=== PATIENT | female | born 2000 | race Caucasian/White ===

== ENCOUNTER → 2021-10-13 10:08 | Outpatient (BNVA) | payer MEDICAID, SELFPAY | PROVIDERS: Visit Provider Nurse Practitioner Family | DX: F95.9 Tic disorder, unspecified (principal); F39 Unspecified mood [affective] disorder; F43.10 Post-traumatic stress disorder, unspecified; Z79.899 Other long term (current) drug therapy | CPT/HCPCS: 99212 ==

== ENCOUNTER → 2022-01-26 09:19 | Outpatient (BNVA) | payer MEDICAID, SELFPAY | PROVIDERS: Visit Provider Nurse Practitioner Family | DX: F95.9 Tic disorder, unspecified (principal); F39 Unspecified mood [affective] disorder; F43.10 Post-traumatic stress disorder, unspecified | CPT/HCPCS: 99212 ==

== ENCOUNTER → 2022-05-27 09:23 | Outpatient (BNVA) | payer MEDICAID, SELFPAY | PROVIDERS: Visit Provider Nurse Practitioner Family | DX: F95.9 Tic disorder, unspecified (principal); F39 Unspecified mood [affective] disorder; F43.10 Post-traumatic stress disorder, unspecified; G43.109 Migraine with aura, not intractable, without status migrainosus; Z79.899 Other long term (current) drug therapy | CPT/HCPCS: 99212 ==

== ENCOUNTER → 2022-08-27 11:01 | Outpatient (BNVA) | payer MEDICAID, SELFPAY | PROVIDERS: Visit Provider Nurse Practitioner Family | DX: F95.9 Tic disorder, unspecified (principal); F43.10 Post-traumatic stress disorder, unspecified; F39 Unspecified mood [affective] disorder; G43.109 Migraine with aura, not intractable, without status migrainosus; Z79.899 Other long term (current) drug therapy | CPT/HCPCS: 99212 ==

== ENCOUNTER 2023-01-01 11:01 | Outpatient (AMB) | payer MEDICAID, SELFPAY ==
--- NOTE | 2023-01-01 11:02 | A.OFFVIS_ITS ---
Intake Vital Signs 01/01/23 11:03 Height 5 ft 1 in Weight 119 lb BMI 22.5 Pulse 94 Pulse Source Pulse Oximeter Pulse Oximetry (%) 99 Oxygen Delivery Method Room Air Intake Visit Reasons: 4mo follow up - Confirmed Intake Note: Patient presents for 4 month follow up. Patient states My hair pulling has gotten better.no changes made it juts happened. Allergies No Known Allergies Allergy (Verified 01/01/23 11:06) Medication List - Last Reconciled 01/01/23 by SALINAS Orellana clonidine HCl 0.2 mg PO BEDTIME 90 days fluoxetine 60 mg PO DAILY 30 days gabapentin 100 - 300 mg (1 - 3 x 100 mg) PO BEDTIME 30 days magnesium oxide 400 mg PO BEDTIME 30 days riboflavin (vitamin B2) 400 mg (4 x 100 mg) PO DAILY 90 days sumatriptan succinate 50 - 100 mg orally at onset of headache, may repeat in 2 h rs PRN; max 2 tabs per day or 4 tabs/week (may take with Ibuprofen) 30 days HPI HPI Comments History of Present Illness Details 22-yr-old female presents for f/u visit. Pt denies any significant interval medical changes. Initially reports her mood is stable, however then notes that she has has increased bouts of hearing pulling. She can often feel that she is not a goo person. She has been taking walks with her mom. She is able to go to the store with her grandmother/mother if the store is not busy. She is still meeting w/ her therapist regularly. She is having having about 1 headache a week. She is using the Sumatriptan as needed, which are effective. [facility] Family History Father Tourette's Brother Diabetes mellitus Social History Alcohol intake: never Patient Tobacco Use Status: Never used Tobacco Review of Systems Const All systems reviewed & are unremarkable except as noted in HPI and below Physical Exam Vital Signs: Last Vital Signs Pulse 94 01/01/23 11:03 Pulse Ox 99 01/01/23 11:03 Oxygen Delivery Method Room Air 01/01/23 11:03 BMI result Body Mass Index 22.5 Const General: cooperative and no acute distress Orientation/consciousness: patient oriented x3 HEENT Head: Yes normocephalic Resp Effort & Inspection: normal respiratory effort and able to speak in complete sentences Neuro General: patient oriented x3, gait normal and CN's II-XI intact bilaterally Cognition (Neuro): normal cognition Motor exam (neuro): 5/5 motor strength present throughout Psych Appearance: grossly normal Mental Status: mental status grossly normal Speech and movement: Normal speech and movement present Affect: normal affect Attitude: cooperative Thought process: Normal thought process present Thought content: Normal thought content present Insight: Good insight present (Psych) Judgement: Good judgement present (Psych) Assessment & Plan Assessment & Plan (1) Tic disorder: Comment: Vocal and Motor tics. ? exacerbated by recent trauma which coincided with COVID- 19 pandemic in Spring 2019. Code(s): F95.9 - Tic disorder, unspecified (2) Mood disorder: Comment: depression, anxiety, fear, PTSD components. Code(s): F39 - Unspecified mood [affective] disorder (3) PTSD (post-traumatic stress disorder): Comment: w/ strong apprehension of being close to men Code(s): F43.10 - Post-traumatic stress disorder, unspecified (4) Migraine with aura: Code(s): G43.109 - Migraine with aura, not intractable, without status migrainosus Plan For tics/PTSD/mood disorder: Increase fluoxetine from 30mg bid to 60mg qam and 20mg qpm (pt wary to take a larger dose capsule). Continue Clonidine 0.2mg qhs. Continue psychotherapy. Continue to use strategies to manage tics/anxiety- such as using handheld tangible devices or increasing activities such as coloring. ? For migraine with aura and neck pain: For prevention: Continue Riboflavin May use Magnesium prn. Continue Gabapentin 200mg qhs For acute tx: Continue Sumatriptan prn. ? For menstrual migraine: Starting 2 days before menses, may take Sumatriptan 50-100mg and Naproxen 440mg q 12 hrs (max 5 days). Medications: New fluoxetine 60 mg PO DAILY 30 days 30 tabs 3RF Changed From fluoxetine administer in the morning and at noon/midday 20 mg PO BID 60 caps 0RF 30 days To fluoxetine 20 mg PO QPM 30 caps 6RF 30 days Discontinued fluoxetine take w/ 20mg tab = 30mg daily Discontinued Reason: Doctor's Order 10 mg PO DAILY 30 days 30 tabs 3RF fluoxetine take w/ 10mg tab= 30mg daily Discontinued Reason: Doctor's Order 20 mg PO DAILY 30 days 30 tabs 6RF Coding Level of Care Code Est Pt Level 4 (75748) Diagnoses Tic disorder F95.9 Mood disorder F39 PTSD (post-traumatic stress disorder) F43.10 Migraine with aura G43.109
[2023-01-01 11:03] VITALS: PULSE 94; O2SAT 99; BMI 22.5
== END 2023-01-01 11:54 | disposition home or self-care (01) ==
PROVIDERS: Visit Provider Nurse Practitioner Family
DX: F95.9 Tic disorder, unspecified (principal); F39 Unspecified mood [affective] disorder; F43.10 Post-traumatic stress disorder, unspecified; G43.109 Migraine with aura, not intractable, without status migrainosus
CPT/HCPCS: 99214

== ENCOUNTER → 2023-01-01 11:01 | Outpatient (BNVA) | payer MEDICAID, SELFPAY | PROVIDERS: Visit Provider Nurse Practitioner Family | DX: F95.9 Tic disorder, unspecified (principal); F39 Unspecified mood [affective] disorder; F43.10 Post-traumatic stress disorder, unspecified; G43.109 Migraine with aura, not intractable, without status migrainosus | CPT/HCPCS: 99212 ==

== ENCOUNTER 2023-04-15 11:23 | Outpatient (AMB) | payer MEDICAID, SELFPAY ==
[2023-04-15 11:42] VITALS: BP 98/70; PULSE 86; O2SAT 99; BMI 22.1
--- NOTE | 2023-04-15 11:42 | A.OFFVIS_ITS ---
Intake Vital Signs 04/15/23 11:42 Height 5 ft 1 in Weight 117 lb BMI 22.1 BP 98/70 Blood Pressure Location Rt brachial Position Sitting Pulse 86 Pulse Source Pulse Oximeter Pulse Oximetry (%) 99 Oxygen Delivery Method Room Air Intake Visit Reasons: 4mo follow up-Confirmed Intake Note: Patient presents for 4 month follow up. everything's going great Allergies No Known Allergies Allergy (Verified 04/15/23 11:47) Medication List - Last Reconciled 04/15/23 by SALINAS Orellana clonidine HCl 0.2 mg PO BEDTIME 90 days fluoxetine 3 tabs qam and 1 tab qhs orally; 30 days gabapentin 100 - 300 mg (1 - 3 x 100 mg) PO BEDTIME 30 days magnesium oxide 400 mg PO BEDTIME 30 days riboflavin (vitamin B2) 400 mg (4 x 100 mg) PO DAILY 90 days sumatriptan succinate 50 - 100 mg orally at onset of headache, may repeat in 2 hrs PRN; max 2 tabs per day or 4 tabs/week (may take with Ibuprofen) 30 days HPI HPI Comments History of Present Illness Details 22-yr-old female presents for f/u visit, accompanied by her mom. Pt denies any significant interval medical history changes. She feels that the recent med changes have been helpful. However, once a week, she can feel more depressed, miserable in the morning. She finds that playing her switch for an hour help. Tics are well-controlled. Less nighttime tics. She has been having some postural tremor. Migraines are well controlled on her current regimen. Using sumatriptan once or twice a week with good effect. She is still seeing her therapist. [facility] Family History Father Tourette's Brother Diabetes mellitus Social History Alcohol intake: never Patient Tobacco Use Status: Never used Tobacco Review of Systems Const All systems reviewed & are unremarkable except as noted in HPI and below Physical Exam Vital Signs: Last Vital Signs Pulse 86 04/15/23 11:42 BP 98/70 04/15/23 11:42 Pulse Ox 99 04/15/23 11:42 Oxygen Delivery Method Room Air 04/15/23 11:42 BMI result Body Mass Index 22.1 Const General: cooperative and no acute distress Resp Effort & Inspection: normal respiratory effort and able to speak in complete sentences Neuro Other: Alert and oriented x3 Overall pleasant affect Mild verbal tics, some swearing and some offensive statements. Mild hand movements, patient is using her fidgeting devices with good 1st effect during the visit. [place] of head has evidence of repetitive hair tugging pulling. Assessment & Plan Assessment & Plan (1) Tic disorder: Comment: Vocal and Motor tics. ? exacerbated by recent trauma which coincided with COVID- 19 pandemic in Spring 2019. Code(s): F95.9 - Tic disorder, unspecified (2) Mood disorder: Comment: depression, anxiety, fear, PTSD components. Code(s): F39 - Unspecified mood [affective] disorder (3) Tremor: Code(s): R25.1 - Tremor, unspecified (4) Family history of diabetes mellitus type I: Code(s): Z83.3 - Family history of diabetes mellitus Plan The patient requests assistance with finding of adult PCP. We will reach out to [facility] [place] office to see if their female PCPs are accepting new patients. Will check baseline labs for tremor and depression. For tics/PTSD/mood disorder: Continue fluoxetine 60mg qam and 20mg qpm (pt wary to take a larger dose capsule). Continue Clonidine 0.2mg qhs. Continue psychotherapy. Continue to use strategies to manage tics/anxiety- such as using handheld tangible devices or increasing activities such as coloring. ? For migraine with aura and neck pain: For prevention: Continue Riboflavin May use Magnesium prn. Continue Gabapentin 200mg qhs For acute tx: Continue Sumatriptan prn. ? For menstrual migraine: Starting 2 days before menses, may take Sumatriptan 50-100mg and Naproxen 440mg q 12 hrs (max 5 days). Follow-up in 3-4 months or sooner as needed. This note is constructed using voice recognition software. While every effort has been made to ensure accuracy, energy trader errors may have been included. Orders: Orders Complete Blood Count Auto Diff 04/15/23 F39 - Unspecified mood [affective] disorder, F95.9 - Tic disorder, unspecified, G43.109 - Migraine with aura, not intractable, without status migrainosus, R25.1 - Tremor, unspecified, Z83.3 - Family history of diabetes mellitus Vitamin B12 and Folate 04/15/23 F39 - Unspecified mood [affective] disorder, F95.9 - Tic disorder, unspecified, G43.109 - Migraine with aura, not intractable, without status migrainosus, R25.1 - Tremor, unspecified, Z83.3 - Family history of diabetes mellitus Hemoglobin A1c 04/15/23 F39 - Unspecified mood [affective] disorder, G43.109 - Migraine with aura, not intractable, without status migrainosus, R25.1 - Tremor, unspecified, Z83.3 - Family history of diabetes mellitus Comprehensive Met. Panel 04/15/23 F39 - Unspecified mood [affective] disorder, F95.9 - Tic disorder, unspecified, G43.109 - Migraine with aura, not intractable, without status migrainosus, R25.1 - Tremor, unspecified, Z83.3 - Family history of diabetes mellitus Erythrocyte Sedimentation Rate 04/15/23 F39 - Unspecified mood [affective] disorder, F95.9 - Tic disorder, unspecified, G43.109 - Migraine with aura, not intractable, without status migrainosus, R25.1 - Tremor, unspecified, Z83.3 - Family history of diabetes mellitus RODRIGUEZ Reflex Titer and Pattern 04/15/23 F39 - Unspecified mood [affective] disorder, F95.9 - Tic disorder, unspecified, G43.109 - Migraine with aura, not intractable, without status migrainosus, R25.1 - Tremor, unspecified, Z83.3 - Family history of diabetes mellitus Rheumatoid Factor 04/15/23 F39 - Unspecified mood [affective] disorder, F95.9 - Tic disorder, unspecified, G43.109 - Migraine with aura, not intractable, without status migrainosus, R25.1 - Tremor, unspecified, Z83.3 - Family history of diabetes mellitus TSH reflex Free T4 04/15/23 F39 - Unspecified mood [affective] disorder, F95.9 - Tic disorder, unspecified, G43.109 - Migraine with aura, not intractable, without status migrainosus, R25.1 - Tremor, unspecified, Z83.3 - Family history of diabetes mellitus Folate 04/15/23 F39 - Unspecified mood [affective] disorder, F95.9 - Tic disorder, unspecified, G43.109 - Migraine with aura, not intractable, without status migrainosus, R25.1 - Tremor, unspecified, Z83.3 - Family history of diabetes mellitus Medications: Changed From magnesium oxide may hold for loose stools 400 mg PO BEDTIME 30 days 30 tabs 6RF To magnesium oxide may hold for loose stools 400 mg PO BEDTIME 90 days 90 tabs 3RF Refilled riboflavin (vitamin B2) in am 400 mg (4 x 100 mg) PO DAILY 90 days 360 tabs 3RF sumatriptan succinate (0.5 - 1 x 100 mg) 50 - 100 mg orally at onset of headache, may repeat in 2 hrs PRN; max 2 tabs per day or 4 tabs/week (may take with Ibuprofen) 30 days 12 tabs 6RF migraine headache gabapentin 100 - 300 mg (1 - 3 x 100 mg) PO BEDTIME 30 days 90 caps 6RF fluoxetine 3 tabs qam and 1 tab qhs orally; 30 days 120 caps 6RF F39 - Unspecified mood [affective] disorder, F43.10 - Post-traumatic stress disorder, unspecified, F95.9 - Tic disorder, unspecified clonidine HCl 0.2 mg PO BEDTIME 90 days 90 tabs 1RF Coding Level of Care Code Est Pt Level 4 (91842) Diagnoses Tic disorder F95.9 Mood disorder F39 Tremor R25.1 Family history of diabetes mellitus type I Z83.3
== END 2023-04-15 12:35 | disposition home or self-care (01) ==
PROVIDERS: Visit Provider Nurse Practitioner Family
DX: F95.9 Tic disorder, unspecified (principal); F39 Unspecified mood [affective] disorder; Z83.3 Family history of diabetes mellitus
CPT/HCPCS: 99214

== ENCOUNTER → 2023-04-15 11:23 | Outpatient (BNVA) | payer MEDICAID, SELFPAY | PROVIDERS: Visit Provider Nurse Practitioner Family | DX: F95.9 Tic disorder, unspecified (principal); F39 Unspecified mood [affective] disorder; R25.1 Tremor, unspecified; Z83.3 Family history of diabetes mellitus | CPT/HCPCS: 99212 ==

== ENCOUNTER 2023-04-15 13:00 | Outpatient (REF) | payer MEDICAID, SELFPAY ==
[2023-04-15 16:21] LABS: MANUAL DIFF FLAG NO
[2023-04-15 16:40] LABS: Basophils Percent Auto 0.3 % (0-2); Eosinophils Absolute Auto 0.1 X10*3/uL (0.0-0.4); Eosinophils Percent Auto 1.7 % (0-4); Hematocrit 41.9 % (37.0-47.0); Hemoglobin 13.8 g/dl (12.0-16.0); Imm Gran Abs Auto 0.03 X10*3/uL (0.00-0.03); Imm Gran Pct Auto 0.4 % (0.0-0.4); Lymphocytes Absolute Auto 2.6 X10*3/uL (1.2-4.9); Lymphocytes Percent Auto 33.6 % (20-40); Mean Corpuscular HGB Conc 32.9 g/dl (31.0-35.0); Mean Corpuscular Hemoglobin 31.1 pg (27.0-33.0); Mean Corpuscular Volume 94.4 fL (80.0-98.0); Monocytes Absolute Auto 0.7 X10*3/uL (0.1-1.2); Monocytes Percent Auto 8.6 % (2-11); Neutrophils Absolute Auto 4.3 x10*3/uL (2.0-8.3); Neutrophils Percent Auto 55.4 % (45-73); Platelet Count 235 X10*3/uL (160-400); Red Blood Count 4.44 X10*6/uL (4.20-5.50); Red Cell Distribution Width 12.6 % (11.0-16.0); White Blood Count 7.8 X10*3/uL (4.8-10.8)
[2023-04-15 16:46] LABS: Estimated Average Glucose 94 mg/dL; Hemoglobin A1c % 4.9 % (<6.0)
[2023-04-15 16:47] LABS: Rheumatoid Factor < 13.0 IU/mL (<15.0)
[2023-04-15 16:52] LABS: Alanine Aminotransferase 20 U/L (0-31); Albumin Level 4.8 g/dL (3.5-5.0); Alkaline Phosphatase 76 U/L (39-117); Anion Gap 18 (12-20); Aspartate Amino Transferase 22 U/L (5-31); Bilirubin Total 0.5 mg/dL (0.0-1.0); Blood Urea Nitrogen 13 mg/dL (9-16); Calcium 10.4 mg/dL (8.4-10.2); Carbon Dioxide 24 mmol/L (22-29); Chloride 102 mmol/L (96-108); Estimated Glomerular Filt Rate > 60; Glucose Random 86 mg/dL (60-115); Sodium 140 mmol/L (135-145); Total Protein 8.2 g/dL (6.5-8.0)
[2023-04-15 17:08] LABS: TSH reflex Free T4 1.89 uIU/mL (0.32-4.0)
[2023-04-15 17:17] LABS: Folate 7.3 ng/mL (> or = 4.0); Vitamin B12 625 pg/mL (200-900)
[2023-04-15 17:25] LABS: Erythrocyte Sedimentation Rate 12 MM/HR (0-20)
[2023-04-22 13:53] LABS: Anti Nuclear Antibody Screen POSITIVE (NEGATIVE)
== END 2023-04-15 13:01 | disposition home or self-care (01) ==
LOC: HO.HMGCLDS 13:00
PROVIDERS: Visit Provider Nurse Practitioner Family
DX: G43.109 Migraine with aura, not intractable, without status migrainosus (principal); R25.1 Tremor, unspecified; F39 Unspecified mood [affective] disorder; Z83.3 Family history of diabetes mellitus
CPT/HCPCS: 36415; 80053; 82607; 82746; 83036; 84443; 85025; 85652; 86038; 86039; 86431; 99212

== ENCOUNTER 2023-06-11 14:46 | Outpatient (AMB) | payer MEDICAID, SELFPAY ==
[2023-06-11 14:52] VITALS: BP 100/70; PULSE 99; TEMP 36.1; O2SAT 98; BMI 21.7
--- NOTE | 2023-06-11 14:52 | MHC.OFFVIS ---
Intake Vital Signs 06/11/23 14:52 Height 5 ft 1 in Weight 115 lb BMI 21.7 BP 100/70 Blood Pressure Location Rt brachial Position Sitting Pulse 99 Pulse Source Pulse Oximeter Temp 97 F Temp Source Skin Pulse Oximetry (%) 98 Oxygen Delivery Method Room Air Intake Visit Reasons: abnormal immunological findings in serum/LVM Intake Note: New patient, internally referred, presents to office today for abnormal labs. Donor Specialist Required: No Accompanied by: Grand Parent Allergies No Known Allergies Allergy (Verified 06/11/23 14:55) HPI HPI Comments History of Present Illness Details Ms. Beasley 22-year-old female prevents for evaluation of positive RODRIGUEZ. She is accompanied by her grandmother. She was referred by neurologist. She has been seeing the neurologist for what she describes as tremors to her hands. The patient has no complaints with regards signs and symptoms for connective tissue disease. She denies dry eyes dry mouth, rashes, chronic fatigue and fevers. She she says she gets fine bumps when she is in the sun which sounds more like a heat rash. She does not have GI or urinary concerns. She denies red, warm, swollen joints, Raynaud's. Grandma observed to have Raynaud's during visit Neurology visit 04/15/2023: 22-yr-old female presents for f/u visit, accompanied by her mom. Pt denies any significant interval medical history changes. She feels that the recent med changes have been helpful. However, once a week, she can feel more depressed, miserable in the morning. She finds that playing her switch for an hour help. Tics are well-controlled. Less nighttime tics. She has been having some postural tremor. Migraines are well controlled on her current regimen. Using sumatriptan once or twice a week with good effect. She is still seeing her therapist. [facility] Family History (Updated 06/11/23 @ 14:57 by SABINA Penny) Father Tourette's Brother Diabetes mellitus Family/Other Arthritis Social History Alcohol intake: never Patient Tobacco Use Status: Never used Tobacco Review of Systems Const All systems reviewed & are unremarkable except as noted in HPI and below Physical Exam Vital Signs: Last Vital Signs Temp 97 F 06/11/23 14:52 Pulse 99 06/11/23 14:52 BP 100/70 06/11/23 14:52 Pulse Ox 98 06/11/23 14:52 Oxygen Delivery Method Room Air 06/11/23 14:52 BMI result Body Mass Index 21.7 APPEARANCE: Patient in no acute distress EYES no redness, normal EARS:? External ear normal. NOSE/SINUS:? Airflow through both nares, no nasal discharge, no bleeding THROAT:? Oral mucosa moist, no ulcerations NECK:? No thyromegaly or masses, no adenopathy, trachea midline. HEART:? Regular rhythm, S1-S2 heard, no murmurs, rubs or gallops. LUNG:? Clear to percussion and auscultation EXTREMITIES:? No edema, no calf tenderness, normal peripheral pulses. NEURO:? Oriented and alert x3.? No focal weakness.? Reflexes symmetric.? Gait normal. SKIN:? There are no skin lesions evident. No objective signs of Raynaud's phenomenon. JOINT EXAM: Cervical Spine:.? Full range of motion without pain; no tenderness. Thoracic Spine:.? No scoliosis.? No tenderness on palpation. Lumbar Spine:.? Alignment normal.? Full range of motion without pain, no tenderness. Chest Wall:.? No tenderness, swelling, increased warmth or erythema. Hands:.? Normal pain-free range of motion without tenderness, swelling, increased warmth or erythema. 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 Wrists:.? Normal pain-free range of motion without tenderness, swelling, increased warmth or erythema. Elbows:. Normal pain-free range of motion without tenderness, swelling, increased warmth or erythema. Shoulders:.?? Full range of motion without pain. No tenderness, weakness, swelling, increased warmth or erythema. Hips:.? Full range of motion without pain. Hip bursa:.? No tenderness. Knees:.?? Normal pain-free range of motion without tenderness, swelling, increased warmth or erythema.? There is no effusion or crepitation Ankles:.? Normal pain-free range of motion without tenderness, swelling, increased warmth or erythema. Feet:.? Normal pain-free range of motion without tenderness, swelling, increased warmth or erythema. Tender points:? No tenderness to digital palpation at the occiput, trapezius, second rib, lateral epicondyle, knees, greater trochanter and gluteal area bilaterally. ? Results Reviewed Results Reviewed: Laboratory Tests 04/15/23 13:05 WBC 7.8 RBC 4.44 Hgb 13.8 Hct 41.9 ESR 12 Calcium 10.4 H AST 22 ALT 20 Total Protein 8.2 H TSH 1.89 Rheumatoid Factor < 13.0 RODRIGUEZ Titer 1:640 H RODRIGUEZ Titer 2 1:160 H RODRIGUEZ Titer 3 TNP RODRIGUEZ Pattern A RODRIGUEZ Pattern 2 A Assessment & Plan Assessment & Plan (1) Positive RODRIGUEZ (antinuclear antibody): Code(s): R76.8 - Other specified abnormal immunological findings in serum (2) Tremor: Code(s): R25.1 - Tremor, unspecified Plan Patient is here for positive RODRIGUEZ 1:640 evaluation. After careful initial review of history, available diagnostics, and physical examination, I do not find an concerns at this time for connective tissue disease/inflammatory process. I discussed at length with patient and her grandmother what it means to have a positive RODRIGUEZ, and a small percentage of the population can have a positive RODRIGUEZ without any related autoimmune concerns. Nonetheless, I will obtain additional labs to evaluate further. She did have a mild elevation in her calcium so I will repeat the CMP/calcium. I see no findings for sarcoid on PE and in her history but given that tremors can happen in the context of neurosarcoidosis, I will do her Neil levels and vitamin-D, if elevated calcium persists. I discussed with patient and her grandmother possible symptoms for connective tissue disease and that they should call the office should Gale develop any of the symptoms. I spent 30 minutes reviewing history, evaluating patient, and documenting Follow-up for 4 weeks to discuss lab results Orders: Orders Erythrocyte Sedimentation Rate 06/11/23 R76.8 - Other specified abnormal immunological findings in serum, R25.1 - Tremor, unspecified Anti-Centromere B Antibodies 06/11/23 R76.8 - Other specified abnormal immunological findings in serum, R25.1 - Tremor, unspecified Complement C3 06/11/23 R76.8 - Other specified abnormal immunological findings in serum, R25.1 - Tremor, unspecified Complement C4 06/11/23 R76.8 - Other specified abnormal immunological findings in serum, R25.1 - Tremor, unspecified Complete Blood Count Auto Diff 06/11/23 R76.8 - Other specified abnormal immunological findings in serum, R25.1 - Tremor, unspecified Immunofixation Pnl, Serum 06/11/23 R76.8 - Other specified abnormal immunological findings in serum, R25.1 - Tremor, unspecified Immunoglobulins,IgG IgA IgM 06/11/23 R76.8 - Other specified abnormal immunological findings in serum, R25.1 - Tremor, unspecified Sjogren's Antibodies 06/11/23 R76.8 - Other specified abnormal immunological findings in serum, R25.1 - Tremor, unspecified Lupus Anticoagulant Panel 06/11/23 R76.8 - Other specified abnormal immunological findings in serum, R25.1 - Tremor, unspecified Mitochondrial Antibody 06/11/23 R76.8 - Other specified abnormal immunological findings in serum, R25.1 - Tremor, unspecified Thyroid Peroxidase Antibodies 06/11/23 R76.8 - Other specified abnormal immunological findings in serum, R25.1 - Tremor, unspecified Thyroglobulin Antibodies 06/11/23 R76.8 - Other specified abnormal immunological findings in serum, R25.1 - Tremor, unspecified Histone Antibody 06/11/23 R76.8 - Other specified abnormal immunological findings in serum, R25.1 - Tremor, unspecified Aldolase 06/11/23 R76.8 - Other specified abnormal immunological findings in serum, R25.1 - Tremor, unspecified Anti DNA DS Antibody 06/11/23 R76.8 - Other specified abnormal immunological findings in serum, R25.1 - Tremor, unspecified ANCA Vasculitides 06/11/23 R76.8 - Other specified abnormal immunological findings in serum, R25.1 - Tremor, unspecified Anti Extractable Nuclear Ag 06/11/23 R76.8 - Other specified abnormal immunological findings in serum, R25.1 - Tremor, unspecified Comprehensive Met. Panel 06/11/23 R76.8 - Other specified abnormal immunological findings in serum, R25.1 - Tremor, unspecified Protein Electrophoresis, Serum 06/11/23 R76.8 - Other specified abnormal immunological findings in serum, R25.1 - Tremor, unspecified UA w Microscopic 06/11/23 R76.8 - Other specified abnormal immunological findings in serum, R25.1 - Tremor, unspecified Scleroderma 70 Antibody 06/11/23 R76.8 - Other specified abnormal immunological findings in serum, R25.1 - Tremor, unspecified Protein Creatinine Ratio, Ur 06/11/23 R76.8 - Other specified abnormal immunological findings in serum, R25.1 - Tremor, unspecified Smooth Muscle Antibody 06/11/23 R76.8 - Other specified abnormal immunological findings in serum, R25.1 - Tremor, unspecified Coding Level of Care Code New Pt Level 4 (51898) Diagnoses Positive RODRIGUEZ (antinuclear antibody) R76.8 Tremor R25.1
== END 2023-06-11 15:47 | disposition home or self-care (01) ==
PROVIDERS: Visit Provider Nurse Practitioner Family
DX: R76.8 Other specified abnormal immunological findings in serum (principal); R25.1 Tremor, unspecified
CPT/HCPCS: 99204

== ENCOUNTER → 2023-06-11 14:46 | Outpatient (BNVA) | payer MEDICAID, SELFPAY | PROVIDERS: Visit Provider Nurse Practitioner Family | DX: R76.8 Other specified abnormal immunological findings in serum (principal); R25.1 Tremor, unspecified | CPT/HCPCS: 99212 ==

== ENCOUNTER 2024-01-10 09:02 | Outpatient (AMB) | payer MEDICAID, SELFPAY ==
--- NOTE | 2024-01-10 09:04 | MHC.OFFVIS ---
Vital Signs 01/10/24 09:05 Height 5 ft 1 in Weight 118 lb BMI 22.3 BP 110/72 Blood Pressure Location Rt brachial Position Sitting Intake Visit Reasons: Follow Up Intake Note: Patient presents for Allergies No Known Allergies Allergy (Verified 01/10/24 09:07) Medication List - Last Reconciled 01/10/24 by SALINAS Orellana clonidine HCl 0.2 mg PO BEDTIME 90 days fluoxetine 3 tabs qam and 1 tab qhs orally; 30 days gabapentin 100 - 300 mg (1 - 3 x 100 mg) PO BEDTIME 30 days magnesium oxide 400 mg PO BEDTIME 90 days riboflavin (vitamin B2) 400 mg (4 x 100 mg) PO DAILY 90 days sumatriptan succinate 50 - 100 mg orally at onset of headache, may repeat in 2 hrs PRN; max 2 tabs per day or 4 tabs/week (may take with Ibuprofen) 30 days HPI Comments Details: 23-yr-old female presents for f/u visit of tic d/o and migraine- she is most concerned about phonophobia s/s. Pt is accompanied by her mom. She has established care with a PCP at [place]. Her interval lab results were notable for double positive RODRIGUEZ, and she had an initial rheumatology consult. Unfortunately the provider has left the practice and has not had further f/u. She was unaware that rheumatology had wanted her to have f/u labs. 04/15/23 13:05 RODRIGUEZ Screen POSITIVE A RODRIGUEZ Titer 1:640 H RODRIGUEZ Titer 2 1:160 H RODRIGUEZ Pattern A- Nuclear, Few Nuclear Dots RODRIGUEZ Pattern 2 A- Nuclear, Large/Coarse Speckled She feels her mood is improved. She is actively working with her therapist and using coping strategies. She is trying to do more activities outside of the house. Tics are well-controlled, once in a while, she will have a strong left head pulling and sniffle tic. She is having less verbal tics. She states she is always shaky- can be at rest or w/ action. She did have a period of increased hair pulling a few months ago. She reports she is almost always photophobic and phonophobic. She has frequent episodes of pressure headache, sometimes this fades away or it becomes a full migraine. She is having one bad migraine per week. Yesterday, she went to [facility] for [facility], and states this triggered 4 different headaches. She feels the B2 and Mag are still helpful. Using sumatriptan with good effect. PFSH Family History Father Tourette's Brother Diabetes mellitus Family/Other Arthritis Social History Alcohol intake: never Patient Tobacco Use Status: Never used Tobacco Physical Exam Vital Signs: Last Vital Signs BP 110/72 01/10/24 09:05 BMI result Body Mass Index 22.3 Const General: cooperative and no acute distress Orientation/consciousness: oriented to person Resp Effort & Inspection: normal respiratory effort and able to speak in complete sentences Neuro Other: Alert and oriented x3 Pleasant affect No verbal tics today. Mild left lower facial tics. No visible hand tremors. Mild hand fidgeting- using handheld device with good effect during the visit. [place] of head has evidence of repetitive hair tugging pulling. General: oriented to person Cranial nerves: Yes CN's II-XII intact bilaterally Cognition (Neuro): normal cognition Gait exam (Neuro): Normal gait present Motor exam (neuro): 5/5 motor strength present throughout Assessment & Plan Assessment & Plan (1) Tic disorder: Comment: Vocal and Motor tics. ? exacerbated by h/o significant trauma which coincided with COVID-19 pandemic in Spring 2019. Code(s): F95.9 - Tic disorder, unspecified Category: Medical (2) Mood disorder: Comment: depression, anxiety, fear, PTSD components. Code(s): F39 - Unspecified mood [affective] disorder Category: Medical (3) Tremor: Code(s): R25.1 - Tremor, unspecified Category: Medical (4) Migraine with aura: Code(s): G43.109 - Migraine with aura, not intractable, without status migrainosus Category: Medical (5) Anxiety: Code(s): F41.9 - Anxiety disorder, unspecified Category: Medical Plan Will schedule pt for f/u rheumatology visit- scheduled for 03/02/24. Pt advised to do labs as ordered by rheum prior to visit. For tics/PTSD/mood disorder: Acknowledged pt's active engagement in working w/ her therapist and making efforts to do more activities outside of the home. Continue fluoxetine 60mg qam and 20mg qpm (pt wary to take a larger dose capsule). Continue Clonidine 0.2mg qhs. Continue psychotherapy. Continue to use strategies to manage tics/anxiety- such as using handheld tangible devices and coping strategies learned through therapy. ? For migraine with aura and neck pain: For prevention: Information shared on noise reduction devices- such as loop ear plugs, foam era plugs. Continue Riboflavin May use Magnesium prn. Continue Gabapentin 200mg qhs Start Amitriptyline 10-20mg qhs. Tx contraindications- anti-HTN/Beta-blockers d/t lightheadedness. CGRP MaBs/Botox d/t needle phobia. Future considerations: Atogepant. For acute migraine tx: Continue Sumatriptan prn. ? For menstrual migraine: Starting 2 days before menses, may take Sumatriptan 50-100mg and Naproxen 440mg q 12 hrs (max 5 days). Pt to follow-up in 6 months or sooner prn. Addendum: f/u labs were notable for elevated LFTs. Call placed to pt- confirms Tylenol use < 500mg about once a week and no alcohol intake. No new unusual symptoms. Will do f/u labs. 04/15/23 01/10/24 13:05 11:15 WBC 5.3 RBC 4.29 Hgb 13.3 Hct 39.8 MCV 92.8 Plt Count 211 ESR 18 Sodium 138 Potassium 4.3 Chloride 104 Carbon Dioxide 26 Anion Gap 12 BUN 12 Creatinine 1.14 Estimated GFR 60 Random Glucose 87 Hemoglobin A1c % 4.9 Calcium 10.2 Total Bilirubin 0.5 AST 72 H ALT 98 H Alkaline Phosphatase 88 Total Protein 7.6 Total Protein (PEP) 7.4 Albumin 4.5 Albumin (PEP) 4.4 Anti-Smooth Muscle Ab <20 Thyroglobulin Antibody <1 Thyroid Peroxidase Ab 2 Complement C3 147 Complement C4 26 Orders: Orders EBV DNA QL PCR Today R79.89 - Other specified abnormal findings of blood chemistry Comprehensive Met. Panel Today R79.89 - Other specified abnormal findings of blood chemistry Amylase Today R79.89 - Other specified abnormal findings of blood chemistry Magnesium Today F41.9 - Anxiety disorder, unspecified, R25.1 - Tremor, unspecified, R76.8 - Other specified abnormal immunological findings in serum, R79.89 - Other specified abnormal findings of blood chemistry Vitamin D 25-OH (D2 and D3) Today F41.9 - Anxiety disorder, unspecified, R25.1 - Tremor, unspecified, R76.8 - Other specified abnormal immunological findings in serum, R7.89 - Other specified abnormal findings of blood chemistry Ceruloplasmin Today F41.9 - Anxiety disorder, unspecified, R25.1 - Tremor, unspecified, R76.8 - Other specified abnormal immunological findings in serum, R7. - Other specified abnormal findings of blood chemistry RODRIGUEZ Reflex Titer and Pattern Today R76.8 - Other specified abnormal immunological findings in serum, R7. - Other specified abnormal findings of blood chemistry Complete Blood Count Auto Diff Today R7. - Other specified abnormal findings of blood chemistry Lipase Today R7. - Other specified abnormal findings of blood chemistry Lipid Panel with Reflex Today R7. - Other specified abnormal findings of blood chemistry TSH reflex Free T4 Today F41.9 - Anxiety disorder, unspecified, R25.1 - Tremor, unspecified, R76.8 - Other specified abnormal immunological findings in serum, R7. - Other specified abnormal findings of blood chemistry Ferritin Today F41.9 - Anxiety disorder, unspecified, R25.1 - Tremor, unspecified, R76.8 - Other specified abnormal immunological findings in serum, R7. - Other specified abnormal findings of blood chemistry Vitamin B12 and Folate Today F41.9 - Anxiety disorder, unspecified, R25.1 - Tremor, unspecified, R76.8 - Other specified abnormal immunological findings in serum, R7.89 - Other specified abnormal findings of blood chemistry IRON PROFILE Today F41.9 - Anxiety disorder, unspecified, R25.1 - Tremor, unspecified, R76.8 - Other specified abnormal immunological findings in serum, R7. - Other specified abnormal findings of blood chemistry Rheumatoid Factor Today R76.8 - Other specified abnormal immunological findings in serum, R7. - Other specified abnormal findings of blood chemistry Medications: New amitriptyline 10 - 20 mg (1 - 2 x 10 mg) PO BEDTIME 30 days 60 tabs 3RF Coding Level of Care Code Est Pt Level 4 (51092) Complex EM visit Add On G2211 Diagnoses Tic disorder F95.9 Mood disorder F39 Tremor R25.1 Migraine with aura G43.109 Anxiety F41.9
[2024-01-10 09:05] VITALS: BP 110/72; BMI 22.3
== END 2024-01-10 10:07 | disposition home or self-care (01) ==
PROVIDERS: Visit Provider Nurse Practitioner Family
DX: F95.9 Tic disorder, unspecified (principal); F39 Unspecified mood [affective] disorder; R25.1 Tremor, unspecified; G43.109 Migraine with aura, not intractable, without status migrainosus; F41.9 Anxiety disorder, unspecified
CPT/HCPCS: 99214

== ENCOUNTER 2024-01-10 09:02 | Outpatient (REF) | payer MEDICAID, SELFPAY ==
[2024-01-10 11:24] LABS: MANUAL DIFF FLAG NO
[2024-01-10 11:34] LABS: Basophils Percent Auto 0.4 % (0-2); Eosinophils Absolute Auto 0.1 X10*3/uL (0.0-0.4); Eosinophils Percent Auto 2.1 % (0-4); Hematocrit 39.8 % (37.0-47.0); Hemoglobin 13.3 g/dl (12.0-16.0); Imm Gran Abs Auto 0.01 X10*3/uL (0.00-0.03); Imm Gran Pct Auto 0.2 % (0.0-0.4); Lymphocytes Absolute Auto 2.1 X10*3/uL (1.2-4.9); Mean Corpuscular HGB Conc 33.4 g/dl (31.0-35.0); Mean Corpuscular Volume 92.8 fL (80.0-98.0); Mean Platelet Volume 9.8 fL (9.4-12.3); Monocytes Absolute Auto 0.4 X10*3/uL (0.1-1.2); Monocytes Percent Auto 8.1 % (2-11); Neutrophils Absolute Auto 2.6 x10*3/uL (2.0-8.3); Neutrophils Percent Auto 49.2 % (45-73); Platelet Count 211 X10*3/uL (160-400); Red Blood Count 4.29 X10*6/uL (4.20-5.50); Red Cell Distribution Width 12.7 % (11.0-16.0); White Blood Count 5.3 X10*3/uL (4.8-10.8)
[2024-01-10 11:56] LABS: Appearance Urine Clear; Color Urine Dark Yellow; Glucose Urine UA Negative (Negative); Leukocyte Esterase Urine Trace (Negative); Nitrite Urine Negative (Negative); PH 7.5 (5.0-9.0); Specific Gravity - Urine <= 1.005 (1.005-1.025); UMIC TRIGGER UA YES; Urine Blood Negative (Negative); Urine Ketones Negative (Negative); Urine Protein Negative (Neg-Trace)
[2024-01-10 12:05] LABS: Bacteria Urine Trace (None Seen); Hyaline Casts Urine 0-2 /LPF (0-2); RBC Urine 0-2 /HPF (0-2); Squamous Epithelial Cell Urine 0-2 /HPF (0-2); WBC Urine 0-5 /HPF (0-5)
[2024-01-10 12:13] LABS: Erythrocyte Sedimentation Rate 18 MM/HR (0-20)
[2024-01-10 12:19] LABS: Alanine Aminotransferase 98 U/L (0-31); Albumin Level 4.5 g/dL (3.5-5.0); Alkaline Phosphatase 88 U/L (39-117); Anion Gap 12 (12-20); Aspartate Amino Transferase 72 U/L (5-31); Bilirubin Total 0.5 mg/dL (0.0-1.0); Blood Urea Nitrogen 12 mg/dL (9-16); Calcium 10.2 mg/dL (8.4-10.2); Carbon Dioxide 26 mmol/L (22-29); Chloride 104 mmol/L (96-108); Estimated Glomerular Filt Rate 60; Glucose Random 87 mg/dL (60-115); Potassium 4.3 mmol/L (3.3-5.1); Sodium 138 mmol/L (135-145); Total Protein 7.6 g/dL (6.5-8.0)
[2024-01-10 12:49] LABS: Creatinine Urine 36.88 mg/dL; Total Protein Urine Random < 7 mg/dL (<12)
[2024-01-11 10:38] LABS: Complement C3 147 mg/dL (83-193)
[2024-01-11 11:34] LABS: Thyroglobulin Antibodies <1 IU/mL (< or = 1); Thyroid Peroxidase Antibodies 2 IU/mL (<9)
[2024-01-11 13:53] LABS: Anti DNA DS Antibody <1 IU/mL; Antibody to SS-A Antigen <1.0 NEG AI (<1.0 NEG); Antibody to SS-B Antigen <1.0 NEG AI (<1.0 NEG); Myeloperoxidase Antibody <1.0 AI; Proteinase 3 PR3 Antibodies <1.0 AI; SM/Ribonucleoprotein Ab <1.0 NEG AI (<1.0 NEG); Scleroderma 70 Antibody <1.0 NEG AI (<1.0 NEG); Smith Protein <1.0 NEG AI (<1.0 NEG)
[2024-01-12 07:59] LABS: Prot Elec - Albumin 4.4 g/dL (3.8-4.8); Prot Elec - Alpha1 0.3 g/dL (0.2-0.3); Prot Elec - Alpha2 0.9 g/dL (0.5-0.9); Prot Elec - Beta 1 0.4 g/dL (0.4-0.6); Prot Elec - Beta 2 0.3 g/dL (0.2-0.5); Prot Elec - Total Protein 7.4 g/dL (6.1-8.1)
[2024-01-13 14:29] LABS: Mitochondrial Antibodies NEGATIVE (NEGATIVE)
[2024-01-13 17:43] LABS: IgA 90 mg/dL (47-310); IgG 1111 mg/dL (600-1640); IgM 179 mg/dL (50-300)
[2024-01-13 18:23] LABS: Smooth Muscle Antibody <20 U (<20)
[2024-01-13 21:43] LABS: Anti-Centromere B Antibodies <1.0 NEG AI (<1.0 NEG)
[2024-01-13 23:03] LABS: Histone Antibody <1.0 U (<1.0)
[2024-01-15 07:23] LABS: Aldolase 6.4 U/L (<=8.1)
[2024-01-15 21:24] LABS: PTT (LAC) Screen 35 sec (<=40)
== END 2024-01-10 09:03 | disposition home or self-care (01) ==
LOC: HO.LAB 09:02
PROVIDERS: Absent Provider Nurse Practitioner Family; Visit Provider Nurse Practitioner Family
DX: G43.109 Migraine with aura, not intractable, without status migrainosus (principal); R76.8 Other specified abnormal immunological findings in serum; F95.9 Tic disorder, unspecified; F41.9 Anxiety disorder, unspecified; F39 Unspecified mood [affective] disorder; R79.89 Other specified abnormal findings of blood chemistry; Z83.3 Family history of diabetes mellitus
CPT/HCPCS: 36415; 80053; 81001; 82085; 82570; 82746; 82784; 83516; 84156; 84165; 85025; 85597; 85598; 85613; 85652; 85730; 86015; 86021; 86160; 86225; 86235; 86334; 86376; 86381; 86800; 99212

== ENCOUNTER 2024-07-03 08:54 | Outpatient (AMB) | payer OTHER, SELFPAY ==
[2024-07-03 09:00] VITALS: BP 90/70; PULSE 106; O2SAT 99; BMI 19.1
--- NOTE | 2024-07-03 09:00 | MHC.OFFVIS ---
Vital Signs 07/03/24 09:00 Height 5 ft 11 in Weight 137 lb BMI 19.1 BP 90/70 Blood Pressure Location Rt brachial Position Sitting Pulse 106 H Pulse Source Pulse Oximeter Pulse Oximetry (%) 99 Oxygen Delivery Method Room Air Intake Visit Reasons: Follow up Intake Note: Patient presents follow up for migraines. Lab work done on 01/10/24 Documentum Consultant Required: No Accompanied by: Mother Allergies No Known Allergies Allergy (Verified 07/03/24 09:08) Medication List - Last Reconciled 07/03/24 by SALINAS Orellana amitriptyline 10 - 20 mg (1 - 2 x 10 mg) PO BEDTIME 30 days cholecalciferol (vitamin D3) 25 mcg PO DAILY 30 days clonidine HCl 0.2 mg PO BEDTIME 90 days fluoxetine 3 tabs qam and 1 tab qhs orally; 30 days gabapentin 100 - 300 mg (1 - 3 x 100 mg) PO BEDTIME 30 days magnesium oxide 400 mg PO BEDTIME 90 days riboflavin (vitamin B2) 400 mg (4 x 100 mg) PO DAILY 90 days sumatriptan succinate 50 - 100 mg orally at onset of headache, may repeat in 2 hrs PRN; max 2 tabs per day or 4 tabs/week (may take with Ibuprofen) 30 days HPI Comments Details: 24-yr-old female presents for f/u visit of Tourette d/o and migraine.Pt is accompanied by her mom. Patient denies significant interval medical history changes. She notes, is that she recently blood work through her new PCP, which showed vitamin-D deficiency, elevated LFTs, elevated cholesterol levels, very mildly elevated TSH. Patient denies excessive Tylenol use or alcohol intake. Patient states she was asked to start OTC vitamin-D supplement, however she has not yet obtain this. She states that her PCP plans to follow her lab results. She has not yet had follow-up follow-up with Rheumatology regarding previous double positive RODRIGUEZ, but plans to go to their office today after this visit to make the follow-up appointment. 04/15/23 13:05 RODRIGUEZ Screen POSITIVE A RODRIGUEZ Titer 1:640 H RODRIGUEZ Titer 2 1:160 H RODRIGUEZ Pattern A- Nuclear, Few Nuclear Dots RODRIGUEZ Pattern 2 A- Nuclear, Large/Coarse Speckled She states that she has periods of increased hear tugging. And that her usual handheld devices/toys seem to be less effective. She is actively working with her therapist-has just started EMDR therapy. She continues to do activities outside of the house. Tics are overall stable, may have a strong left head pulling or sniffle tic. She is having less verbal tics. She is still prone to shakiness- can be at rest or w/ action. She has started amitriptyline, which has been beneficial. Baseline migraine headache symptoms: pressure headache, sometimes this fades away or it becomes a full migraine. Using sumatriptan with good effect- those often tries to wait until the headache is really bad before taking it. [facility] Family History Father Tourette's Brother Diabetes mellitus Family/Other Arthritis Social History Alcohol intake: never Patient Tobacco Use Status: Never used Tobacco Physical Exam Vital Signs: Last Vital Signs Pulse 106 H 07/03/24 09:00 BP 90/70 07/03/24 09:00 Pulse Ox 99 07/03/24 09:00 Oxygen Delivery Method Room Air 07/03/24 09:00 BMI result Body Mass Index 19.1 Const General: cooperative and no acute distress Orientation/consciousness: oriented to person Resp Effort & Inspection: normal respiratory effort and able to speak in complete sentences Neuro Other: Alert and oriented x3 Pleasant affect No verbal tics today. Mild left lower facial tics. No visible hand tremors. Mild hand fidgeting- using handheld device with good effect during the visit. [place] of head has evidence of repetitive hair tugging pulling. General: oriented to person Cranial nerves: Yes CN's II-XII intact bilaterally Cognition (Neuro): normal cognition Gait exam (Neuro): Normal gait present Motor exam (neuro): 5/5 motor strength present throughout Results Reviewed Results Reviewed: Previous labs: 04/15/23 01/10/24 13:05 11:15 WBC 5.3 RBC 4.29 Hgb 13.3 Hct 39.8 MCV 92.8 Plt Count 211 ESR 18 Sodium 138 Potassium 4.3 Chloride 104 Carbon Dioxide 26 Anion Gap 12 BUN 12 Creatinine 1.14 Estimated GFR 60 Random Glucose 87 Hemoglobin A1c % 4.9 Calcium 10.2 Total Bilirubin 0.5 AST 72 H ALT 98 H Alkaline Phosphatase 88 Total Protein 7.6 Total Protein (PEP) 7.4 Albumin 4.5 Albumin (PEP) 4.4 Anti-Smooth Muscle Ab <20 Thyroglobulin Antibody <1 Thyroid Peroxidase Ab 2 Complement C3 147 Complement C4 26 Assessment & Plan Assessment & Plan (1) Tic disorder: Comment: Vocal and Motor tics. ? exacerbated by h/o significant trauma which coincided with COVID-19 pandemic in Spring 2019. Code(s): F95.9 - Tic disorder, unspecified Category: Medical (2) Mood disorder: Comment: depression, anxiety, fear, PTSD components. Code(s): F39 - Unspecified mood [affective] disorder Category: Medical (3) Tremor: Code(s): R25.1 - Tremor, unspecified Category: Medical (4) Migraine with aura: Code(s): G43.109 - Migraine with aura, not intractable, without status migrainosus Category: Medical (5) Anxiety: Code(s): F41.9 - Anxiety disorder, unspecified Category: Medical Plan Patient to request rheumatology follow-up appointment- we will go to their office down the [address] from us to make that appointment today. For vitamin-D deficiency: Start vitamin-D 25 mcg p.o. daily For tics/PTSD/mood disorder: Acknowledged pt's active engagement in working w/ her therapist and starting EMDR therapy. Continue fluoxetine 60mg qam and 20mg qpm (pt wary to take a larger dose capsule). Continue Clonidine 0.2mg qhs. Continue psychotherapy. Continue to use strategies to manage tics/anxiety- such as using handheld tangible devices and coping strategies learned through therapy. ? For migraine with aura and neck pain: For prevention: Information previously shared on noise reduction devices- such as loop ear plugs, foam era plugs. Continue Riboflavin May use Magnesium prn. Continue Gabapentin 200mg qhs Continue Amitriptyline 10-20mg qhs. Discussed alternatives to amitriptyline, such as anti-CGRP MaB tx's as these are not metabolized through the kidney or liver, however patient is very wary to take a monthly injectable medication. Tx contraindications- anti-HTN/Beta-blockers d/t lightheadedness. CGRP MaBs/Botox d/t needle phobia. Future considerations: Atogepant or Vyepti. For acute migraine tx: Advised that triptans will work best if taken at the 1st sign of a headache. Continue Sumatriptan 100mg tab, 1/2 - 1 tab (50-100mg) at onset of headache, may repeat in 2 hours. Max of 2 tabs (200mg) per 24 hours. May take sumatriptan with OTC Tylenol 650-1,000mg every 4-6 hours, Ibuprofen (liquid gels) 600mg every 6 hours, or Naproxen (liquid gels) 440mg q 12 hrs prn. For menstrual migraine: Starting 2 days before menses, may take Sumatriptan 50-100mg and Naproxen 440mg q 12 hrs (max 5 days). Pt to follow-up in 6 months or sooner prn. Medications: New cholecalciferol (vitamin D3) 25 mcg PO DAILY 30 caps 6RF 30 days Refilled amitriptyline 10 - 20 mg (1 - 2 x 10 mg) PO BEDTIME 60 tabs 3RF 30 days Coding Level of Care Code Est Pt Level 4 (17893) Diagnoses Tic disorder F95.9 Mood disorder F39 Tremor R25.1 Migraine with aura G43.109 Anxiety F41.9
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
--- OUTSIDE RECORDS SUMMARY | 2024-07-03 09:44 | XMS_ITS | Clinical Summary ---
Author Organization [facility] [address] [place] [address] [place] [phone] Phone Care Team Providers Care Spring Clipper Name Role Phone Owen Gonzalez MD Primary Care Pr ovider Allergies No known active allergies Medications cloNIDine (CATAPRES) 0.2 mg tablet Take 1 Tablet by mouth at bedtime. Active FLUoxetine (PROzac) 20 mg tabletIndicatio ns:anxiety with depression,post traumatic stress disorder Take 4 tablets (80 mg total) by mouth 1 (one) time each day. Take 60mg in the morning and 20mg nightly Active gabapentin (NEURONTIN) 100 mg capsule Take 2 capsules (200 mg total) by mouth at bedtime. Active magnesium oxide (MAG-OX) 400 mg (241.3 elemental magnesium) tablet Take by mouth at bedtime. Active riboflavin (VITAMIN B2) 25 mg tablet Take by mouth. Active SUMAtriptan (IMITREX) 100 mg tablet Take 1 Tablet by mouth daily as needed. May repeat dose once after 2 hours, if needed. Active Active Problems Problem Noted Date Diagnosed Date LFT elevation 06/30/2024 TSH elevation 06/30/2024 Migraine without status migrainosus, not intract able 12/28/2023 Assessment & Plan (06/28/2024 10:24 AM EDT): Continue neurology follow-up. Continue Imitrex 100 mg daily as needed, vitamin B2 and magnesium oxide PTSD (post-traumatic stress disorder) 12/28/2023 Assessment & Plan (06/28/2024 10:24 AM EDT): Continue neurology follow-up. Her neurologist prescribes psych meds. Continue gabapentin 200 mg nightly, Prozac 60 mg every morning +20 mg nightly and clonidine 0.2 mg nightly. Tic disorder 12/28/2023 Assessment & Plan (06/28/2024 10:24 AM EDT): Continue meds as above and follow-up with neurology Tourette's syndrome 12/28/2023 Assessment & Plan (06/28/2024 10:24 AM EDT): Continue meds as above and follow-up with neurology Encounters Date Type Department Care Team Description 06/28/2024 9:45 AM EDT Office Visit Adult Medicine [address] [phone] Owen Gonzalez MD Migraine without aura and without status migrainosus, not intractable (Primary Dx); PTSD (post-traumatic stress disorder); Tourette's syndrome; Tic disorder; Need for tetanus, diphtheria, and acellular pertussis (Tdap) vaccine; Need for hepatitis C screening test; Immunity status testing 06/27/2024 Telephone Adult Medicine [address] [phone] Owen Gonzalez MD Labs Only from Last 3 Months Immunizations Name Administration Dates Next Due Tdap Tetanus diptheria acell ular pertussis (Boostrix; Adacel) 7yo and older 06/28/2024 Surgical History Surgery Date Site/Laterality Comments NO PAST SURGERIES Medical History Medical History Date Comments PTSD (post-traumatic stress disorder) Migraines Tourette's Family History Medical History Relation Name Comments Other: Other Father Tourette's synd jefry Diabetes Maternal Grandfather Hypertension Maternal Grandmother Relation Name Status Comments Father Maternal Grandfather Alive Maternal Grandmother Alive Social History Tobacco Use Types Packs/Day Years [...] on file Sexual Orientation Not on file Obstetrics History Last Filed Vital Signs Vital Sign Reading [...] Mass Index 25.7 06/28/2024 9:50 AM EDT Plan of Treatment Upcoming Encounters Date Type Department Care Team (Late st Contact Info) Description 12/29/2024 8:00 AM EDT Office Visit Adult Medicine [address] [phone] Noris Harrison PA [address] [place] [phone] Health Maintenance Due Date Last Done Comments HPV Vaccines (1 - 3-dose series) 2016 Meningococcal B Vaccine (1 of 2 - Standard) 2017 Cervical Cancer Screening: Pap Smear 2022 Depression Screening 10/12/2023 HIV Screening 10/12/2023 Social Influencers of Health Screening 10/12/2023 COVID-19 Vaccine ( season) 2023 Influenza Vaccine (Season Ended) 2024 12/27/2008, 12/27/2008 Cholesterol Screening (Lipid Panel) 06/28/2029 06/28/2024 DTaP,Tdap,and Td Vaccines (7 - Td or Tdap) 06/28/2034 06/28/2024, 06/08/2005, 12/08/2002, Additional history exists Hepatitis B Vaccines Completed 03/20/2002, 2001, 2001 Varicella Vaccines Aged Out 06/19/2002 No longer eligible based on patient's age to complete this topic HIB Vaccines Completed 09/04/2002, 11/21, 2001, Additional history exists Pneumococcal Vaccine: Pediatrics (0 to 5 Years) and At-Risk Patients (6 to 64 Years) Completed 09/04/2002, 2001, 2001, Additional history exists IPV Vaccines Completed 06/08/2005, 11/20, 2001, Additional history exists MMR Vaccines Completed 06/01/2006, 09/04/2002 Hepatitis C Screening Completed 06/28/2024 Gonorrhea/Chlamydia Screening Discontinued Hepatitis A Vaccines Aged Out No long er eligible based on patient's age to complete this topic Meningococcal ACWY Vaccine Aged Out N o longer eligible based on patient's age to complete this topic RSV Immunization Patients Under 20 months Aged Out No longer eligible based on patient's age to complete this topic Procedures Procedure Name Priority Date/Time Associated Diagnosis Comments TRIIODOTHYRONINE FREE Routine 06/28/2024 9:00 AM EDT Annual physical exam FREE THYROXINE WITH REFLEX TO FREE TRIIODOTHYRONINE Routine 06/28/2024 9:00 AM EDT Annual physical exam HEPATITIS C ANTIBODY Routine 06/28/2024 9:00 AM EDT Immunity status testing HEPATITIS B SURFACE ANTIBODY Routine 06/28/2024 9:00 AM EDT Immunity status testing CBC WITH AUTO DIFFERENTIAL Routine 06/28/2024 9:00 AM EDT Annual physical exam CBC AND DIFFERENTIAL Routine 06/28/2024 9:00 AM EDT Annual physical exam COMPREHENSIVE METABOLIC PANEL Routine 06/28/2024 9:00 AM EDT Annual physical exam LIPID PANEL WITH REFLEX TO DIRECT LDL Routine 06/28/2024 9:00 AM EDT Annual physical exam THYROID STIMULATING HORMONE WITH REFLEX TO FREE T4 AND FREE T3 Routine 06/28/2024 9:00 AM EDT Annual physical exam VITAMIN B12 Routine 06/28/2024 9:00 AM EDT Annual physical exam FERRITIN Routine 06/28/2024 9:00 AM EDT Annual physical exam IRON AND TIBC Routine 06/28/2024 9:00 AM EDT Annual physical exam VITAMIN D 25 HYDROXY Routine 06/28/2024 9:00 AM EDT Annual physical exam MAGNESIUM Routine 06/28/2024 9:00 AM EDT Annual physical exam from Last 3 Months Results * Hepatitis C antibody (06/28/2024 9:00 AM EDT) Hepatitis C Antibody Negative Negative LAB CHEMISTRY METHOD 06/28/2024 5:35 PM EDT [facility] Blood Venous blood specimen / Unknown Venipuncture / Unknown 06/28/2024 9:00 AM EDT 06/28/2024 9:00 AM EDT Owen Gonzalez MD LAB BLOOD ORDERA BLES Final Result [facility] [address] [place] [address], [place] [phone] * (ABNORMAL) Thyroid stimulating hormone with reflex to free t4 and free t3 (06/28/2024 9:00 AM EDT) TSH 4.17(H) 0.40 - 4.00 mcIU/mL LAB CHEMISTRY METHOD 06/29/2024 2:54 PM EDT [facility] Blood Venous blood specimen / Unknown Venipuncture / Unknown 06/28/2024 9:00 AM EDT 06/28/2024 9:00 AM EDT us Noris BURKS LAB BLOOD ORDERABLES Final Re sult Performing Organization Address [facility]/ZIP Co de Phone Number [facility] [address] [place] [address], [place] [phone] * Free thyroxine with reflex to free triiodothyronine (06/28/2024 9:00 AM EDT) Free T4 1.46 0.70 - 1.80 ng/dL LAB CHEMISTRY METHOD 06/29/2024 3:58 PM EDT [facility] Blood Venous blood specimen / Unknown Venipuncture / Unknown 06/28/2024 9:00 AM EDT 06/28/2024 9:00 AM EDT Noris BURKS LAB BLOOD ORDERABLES Final Re sult Performing Organization Address [facility]/ZIP Co de Phone Number [facility] [address] [place] [address], [place] [phone] * (ABNORMAL) Lipid panel with reflex to direct LDL (06/28/2024 9:00 AM EDT) Cholesterol 238(H) 0 - 200 mg/dL LAB CHEMISTRY METHOD 06/28/2024 3:46 PM EDT [facility] Triglycerides 106 0 - 150 mg/dL LAB CHEMISTRY METHOD 06/28/2024 3:46 PM EDT [facility] HDL 81 >=40 mg/dL LAB CHEMISTRY METHOD 06/28/2024 3:46 PM EDT [facility] LDL Calculated 136(H) 0 - 100 mg/dL LAB CHEMISTRY METHOD 06/28/2024 3:46 PM EDT [facility] VLDL Cholesterol Lei 21.2 mg/dL LAB CHEMISTRY METHOD 06/28/2024 3:46 PM EDT [facility] Non HDL Chol. (LDL+VLDL) 157(H) <145 mg/dL LAB CHEMISTRY METHOD 06/28/2024 3:46 PM T [facility] Chol/HDL Ratio 2.9 0.0 - 4.4 LAB CHEMISTRY METHOD 06/28/2024 3:46 PM [facility] Blood Venous blood specimen / Unknown Venipuncture / Unknown 06/28/2024 9:00 AM EDT 06/28/2024 9:00 AM EDT us Noris BURKS LAB BLOOD ORDERABLES Final Re sult [facility] [address] [place] [address], [place] [phone] * CBC auto differential (06/28/2024 9:00 AM EDT) WBC 4.9 4.8 - 10.8 K/mcL LAB HEMETOLOGY METHOD 06/28/2024 10:17 AM [facility] RBC 4.70 3.80 - 4.80 M/[facility] LAB HEMETOLOGY METHOD 06/28/2024 10:17 AM [facility] Hemoglobin 14.0 11.5 - 16.0 g/dL LAB HEMETOLOGY METHOD 06/28/2024 10:17 AM [facility] Hematocrit 43.6 35.0 - 47.0 % LAB HEMETOLOGY METHOD 06/28/2024 10:17 AM [facility] MCV 93.8 79.0 - 98.0 FL LAB HEMETOLOGY METHOD 06/28/2024 10:17 AM [facility] MCH 30.1 27.0 - 32.0 pcg LAB HEMETOLOGY METHOD 06/28/2024 10:17 AM [facility] MCHC 32.1 32.0 - 37.0 g/dL LAB HEMETOLOGY METHOD 06/28/2024 10:17 AM [facility] RDW 12.8 11.0 - 15.0 % LAB HEMETOLOGY METHOD 06/28/2024 10:17 AM [facility] Platelets 237 130 - 400 K/mcL LAB HEMETOLOGY METHOD 06/28/2024 10:17 AM [facility] MPV 10.2 7.0 - 11.0 FL LAB HEMETOLOGY METHOD 06/28/2024 10:17 AM [facility] NRBC 0.0 <1.0 % LAB HEMETOLOGY METHOD 06/28/2024 10:17 AM [facility] NRBC Absolute 0.00 <0.10 K/mcL LAB HEMETOLOGY METHOD 06/28/2024 10:17 AM [facility] Neutrophils Relative 44.5 % LAB HEMETOLOGY METHOD 06/28/2024 10:17 AM [facility] Lymphocytes Relative 44.0 % LAB HEMETOLOGY METHOD 06/28/2024 10:17 AM [facility] Monocytes Relative 8.0 % LAB HEMETOLOGY METHOD 06/28/2024 10:17 AM [facility] Eosinophils Relative 2.5 % LAB HEMETOLOGY METHOD 06/28/2024 10:17 AM [facility] Basophils Relative 0.6 % LAB HEMETOLOGY METHOD 06/28/2024 10:17 AM [facility] Immature Granulocytes Relative 0.4 % LAB HEMETOLOGY METHOD 06/28/2024 10:17 AM [facility] Neutrophils Absolute 2.18 1.50 - 7.00 K/mcL LAB HEMETOLOGY METHOD 06/28/2024 10:17 AM [facility] Lymphocytes Absolute 2.15 1.00 - 5.00 K/mcL LAB HEMETOLOGY METHOD 06/28/2024 10:17 AM EDT [facility] Monocytes Absolute 0.39 0.20 - 1.00 K/[facility] LAB HEMETOLOGY METHOD 06/28/2024 10:17 AM EDT [facility] Eosinophils Absolute 0.12 0.00 - 0.50 K/[facility] LAB HEMETOLOGY METHOD 06/28/2024 10:17 AM EDT [facility] Basophils Absolute 0.03 0.00 - 0.20 K/[facility] LAB HEMETOLOGY METHOD 06/28/2024 10:17 AM EDT [facility] Immature Granulocytes Absolute 0.02 0.00 - 0.03 K/[facility] LAB HEMETOLOGY METHOD 06/28/2024 10:17 AM T [facility] Blood Venous blood specimen / Unknown Venipuncture / Unknown 06/28/2024 9:00 AM EDT 06/28/2024 9:00 AM EDT us Noris BURKS LAB BLOOD ORDERABLES Final Re sult [facility] [address] [place] [address], * (ABNORMAL) Iron and TIBC (06/28/2024 9:00 AM EDT) Iron 159(H) 40 - 150 mcg/dL LAB CHEMISTRY METHOD 06/28/2024 3:44 PM EDT [facility] TIBC 421 250 - 450 mcg/dL LAB CHEMISTRY METHOD 06/28/2024 3:44 PM EDT [facility] Iron Saturation 38 15 - 50 % LAB CHEMISTRY METHOD 06/28/2024 3:44 PM EDT [facility] Blood Venous blood specimen / Unknown Venipuncture / Unknown 06/28/2024 9:00 AM EDT 06/28/2024 9:00 AM EDT Noris BURKS LAB BLOOD ORDERABLES Final Re sult Performing Organization Address [facility]/ZIP Co de Phone Number [facility] [address] [place] [address], [place] [phone] * (ABNORMAL) Vitamin D 25 hydroxy (06/28/2024 9:00 AM EDT) [facility] Vit D, 25-Hydroxy 22.4(L) 30.0 - 80.0 ng/mL LAB CHEMISTRY METHOD 06/28/2024 4:56 PM EDT [facility] Blood Venous blood specimen / Unknown Venipuncture / Unknown 06/28/2024 9:00 AM EDT 06/28/2024 9:00 AM EDT Noris BURKS LAB BLOOD ORDERABLES Final Re sult Performing Organization Address [facility] de Phone Number [facility] [address] [place] [address], [place] [phone] * Hepatitis B surface antibody (06/28/2024 9:00 AM EDT) [facility] Hepatitis B Surface Ab Negative Negative LAB CHEMISTRY METHOD 06/28/2024 4:56 PM EDT [facility] Hepatitis B Surface Ab Quantitative <3.1 mIU/mL LAB CHEMISTRY METHOD 06/28/2024 4:56 PM EDT [facility] Blood Venous blood specimen / Unknown Venipuncture / Unknown 06/28/2024 9:00 AM EDT 06/28/2024 9:00 AM EDT Narrative [facility] - 06/28/2024 4:56 PM EDT >=10 mIU/mL is considered to be consistent with immunity. Owen Gonzalez MD LAB BLOOD ORDERA BLES Final Result Performing Organization Address [facility]/ZIP Co de Phone Number [facility] [address] [place] [address], [place] [phone] * Triiodothyronine free (06/28/2024 9:00 AM EDT) T3, Free 398 230 - 420 pcg/dL LAB CHEMISTRY METHOD 06/29/2024 4:41 PM EDT [facility] Blood Venous blood specimen / Unknown Venipuncture / Unknown 06/28/2024 9:00 AM EDT 06/28/2024 9:00 AM EDT Noris BURKS LAB BLOOD ORDERABLES Final Re sult Performing Organization Address [facility] Co de Phone Number [facility] [address] [place] [address], * Magnesium (06/28/2024 9:00 AM EDT) Pathologist [facility] Magnesium 2.2 1.9 - 2.6 mg/dL LAB CHEMISTRY METHOD 06/28/2024 3:08 PM EDT [facility] Blood Venous blood specimen / Unknown Venipuncture / Unknown 06/28/2024 9:00 AM EDT 06/28/2024 9:00 AM EDT us Noris BURKS LAB BLOOD ORDERABLES Final Re sult Performing Organization Address [facility]/ZIP Co de Phone Number [facility] [address] [place] [address], [place] [phone] * Ferritin (06/28/2024 9:00 AM EDT) Ferritin 19 8 - 252 ng/mL LAB CHEMISTRY METHOD 06/28/2024 3:44 PM EDT [facility] Blood Venous blood specimen / Unknown Venipuncture / Unknown 06/28/2024 9:00 AM EDT 06/28/2024 9:00 AM EDT us Noris BURKS LAB BLOOD ORDERABLES Final Re sult Performing Organization Address City/[facility]/ZIP Co de Phone Number [facility] [address] [place] [address], [place] [phone] * Vitamin B12 (06/28/2024 9:00 AM EDT) [facility] Vitamin B-12 671 250 - 900 pcg/mL LAB CHEMISTRY METHOD 06/28/2024 3:44 PM EDT [facility] Blood Venous blood specimen / Unknown Venipuncture / Unknown 06/28/2024 9:00 AM EDT 06/28/2024 9:00 AM EDT us Noris BURKS LAB BLOOD ORDERABLES Final Re sult [facility] [address] [place] [address], [place] [phone] * (ABNORMAL) Comprehensive metabolic panel (06/28/2024 9:00 AM EDT) [facility] Sodium 136 133 - 145 mmol/L LAB CHEMISTRY METHOD 06/28/2024 3:44 PM EDT [facility] Potassium 4.3 3.5 - 5.5 mmol/L LAB CHEMISTRY METHOD 06/28/2024 3:44 PM EDT [facility] Chloride 102 96 - 110 mmol/L LAB CHEMISTRY METHOD 06/28/2024 3:44 PM EDT [facility] CO2 26 21 - 32 mmol/L LAB CHEMISTRY METHOD 06/28/2024 3:44 PM EDT [facility] Anion Gap 8 3 - 11 LAB CHEMISTRY METHOD 06/28/2024 3:44 PM EDT [facility] Glucose 92 70 - 100 mg/dL LAB CHEMISTRY METHOD 06/28/2024 3:44 PM [facility] BUN 14 5 - 25 mg/dL LAB CHEMISTRY METHOD 06/28/2024 3:44 PM [facility] Creatinine 1.16(H) 0.50 - 1.10 mg/dL LAB CHEMISTRY METHOD 06/28/2024 3:44 PM [facility] eGFR 68 >=60 mL/min/1. 73m2 LAB CHEMISTRY METHOD 06/28/2024 3:44 PM [facility] Comment:Calculation based on the??Chronic Kidney Disease Epidemiology Collaboration (CKD-EPI) equation refit??without adjustment for race. BUN/Creatinine Ratio 12.1 LAB CHEMISTRY METHOD 06/28/2024 3:44 PM [facility] Calcium 9.9 8.5 - 10.5 mg/dL LAB CHEMISTRY METHOD 06/28/2024 3:44 PM [facility] AST (SGOT) 67(H) 10 - 42 unit/L LAB CHEMISTRY METHOD 06/28/2024 3:44 PM [facility] ALT (SGPT) 97(H) 10 - 60 unit/L LAB CHEMISTRY METHOD 06/28/2024 3:44 PM [facility] Alkaline Phosphatase 97 42 - 121 unit/L LAB CHEMISTRY METHOD 06/28/2024 3:44 PM [facility] Total Protein 8.0 6.0 - 8.0 g/dL LAB CHEMISTRY METHOD 06/28/2024 3:44 PM [facility] Albumin 4.1 3.2 - 5.0 g/dL LAB CHEMISTRY METHOD 06/28/2024 3:44 PM [facility] Total Bilirubin 0.6 0.0 - 1.4 mg/dL LAB CHEMISTRY METHOD 06/28/2024 3:44 PM [facility] Blood Venous blood specimen / Unknown Venipuncture / Unknown 06/28/2024 9:00 AM EDT 06/28/2024 9:00 AM EDT us Noris BURKS LAB BLOOD ORDERABLES Final Re sult [place] ([facility]) [facility] [address] [place] [address], from Last 3 Months Insurance [facility] Care Teams Spring Clipper Relationship Specialty Start Date End Date Owen Gonzalez MD [address] [place] [phone] PCP - General 07/05/23
== END 2024-07-03 10:01 | disposition home or self-care (01) ==
PROVIDERS: Visit Provider Nurse Practitioner Family
DX: F95.9 Tic disorder, unspecified (principal); F39 Unspecified mood [affective] disorder; G43.109 Migraine with aura, not intractable, without status migrainosus; F41.9 Anxiety disorder, unspecified
CPT/HCPCS: 99214

== ENCOUNTER → 2024-07-03 08:54 | Outpatient (BNVA) | payer OTHER, SELFPAY | PROVIDERS: Visit Provider Nurse Practitioner Family | DX: G43.109 Migraine with aura, not intractable, without status migrainosus (principal); F95.9 Tic disorder, unspecified; F39 Unspecified mood [affective] disorder; F41.9 Anxiety disorder, unspecified; R25.1 Tremor, unspecified | CPT/HCPCS: 99212 ==

== ENCOUNTER 2025-01-08 09:01 | Outpatient (AMB) | payer OTHER, SELFPAY ==
[2025-01-08 09:10] VITALS: BP 110/60; PULSE 123; O2SAT 99; BMI 21.9
--- NOTE | 2025-01-08 09:10 | A.OFFVIS_ITS ---
Vital Signs 3 01/08/25 09:10 Height 5 ft 11 in Weight 157 lb BMI 21.9 BP 110/60 Blood Pressure Location Lt brachial Position Sitting Pulse 123 H Pulse Source Pulse Oximeter Pulse Oximetry (%) 99 Oxygen Delivery Method Room Air Intake Visit Reasons: 6 mo follow up Intake Note: Patient presents follow up for migraines. Lab work done on 01/10/24 Supervisor Nuclear Medicine Required: No Accompanied by: Mother Allergies No Known Allergies Allergy (Verified 01/08/25 09:13) Medication List - Last Reconciled 01/08/25 by SALINAS Orellana amitriptyline 10 - 20 mg (1 - 2 x 10 mg) PO BEDTIME 30 days cholecalciferol (vitamin D3) 25 mcg PO DAILY 30 days clonidine HCl 0.2 mg PO BEDTIME 90 days fluoxetine 3 tabs qam and 1 tab qhs orally; 30 days gabapentin 100 - 300 mg (1 - 3 x 100 mg) PO BEDTIME 30 days magnesium oxide 400 mg PO BEDTIME 90 days riboflavin (vitamin B2) 400 mg (4 x 100 mg) PO DAILY 90 days sumatriptan succinate 50 - 100 mg orally at onset of headache, may repeat in 2 hrs PRN; max 2 tabs per day or 4 tabs/week (may take with Ibuprofen) 30 days HPI Comments Details: 12/2024, HPI: 24-yr-old female presents for f/u visit of Tourette disorder, depression, PTSD, and migraine. She is accompanied by her mother. Patient denies significant interval medical history changes. However, she endorses significant social changes since her last visit here. She states, unfortunately, her grandparents' house was condemned, and they were forced to move to her mother's one-bedroom apartment. Her grandparents are looking for housing, and she plans to continue to live with her mother. She has lived with her grandparents since childhood, and she expresses that this is a stressful transition. However, she acknowledges that the stress is alleviated somewhat, as she had been spending most weekends at her mother's apartment before this move. She does worry that her grandparents may not want to talk to her in the future. She and her mother note that she is prone to apologizing. Thus, she has had an increase in her depressive symptoms. She continues to see her therapist and is working on new coping strategies. She reports that her go-to coping strategy is picking her skin and pulling her hair, which ultimately causes its own stress. She reports she may still have tic symptoms, characterized by involuntary movements and vocalizations. She also notes that other coping strategies include engaging in plant care and outdoor activities, as long as she is with her mother or close family. She is still unable to tolerate being outside by herself or in large crowds. Having a couple of migraine attacks per week. She has stopped sumatriptan, because it was not helping and made her feel worse. She finds Tylenol more helpful, but it is not always fully effective. She continues amitriptyline 10mg qhs, gabapentin 200mg qhs, and clonidine 0.2mg qhs. B2 and Mag continue to be helpful. L07/03/2024, HPI: She notes, is that she recently blood work through her new PCP, which showed vitamin-D deficiency, elevated LFTs, elevated cholesterol levels, very mildly elevated TSH. Patient denies excessive Tylenol use or alcohol intake. Patient states she was asked to start OTC vitamin-D supplement, however she has not yet obtain this. She states that her PCP plans to follow her lab results. She has not yet had follow-up follow-up with Rheumatology regarding previous double positive RODRIGUEZ, but plans to go to their office today after this visit to make the follow-up appointment. 3 04/15/23 13:05 RODRIGUEZ Screen POSITIVE A RODRIGUEZ Titer 1:640 H RODRIGUEZ Titer 2 1:160 H RODRIGUEZ Pattern A- Nuclear, Few Nuclear Dots RODRIGUEZ Pattern 2 A- Nuclear, Large/Coarse Speckled She states that she has periods of increased hear tugging. And that her usual handheld devices/toys seem to be less effective. She is actively working with her therapist-has just started EMDR therapy. She continues to do activities outside of the house. Tics are overall stable, may have a strong left head pulling or sniffle tic. She is having less verbal tics. She is still prone to shakiness- can be at rest or w/ action. She has started amitriptyline, which has been beneficial. Baseline migraine headache symptoms: pressure headache, sometimes this fades away or it becomes a full migraine. Using sumatriptan with good effect- those often tries to wait until the headache is really bad before taking it. PFSH Family History Father Tourette's Brother Diabetes mellitus Family/Other Arthritis Social History Alcohol intake: never Patient Tobacco Use Status: Never used Tobacco Physical Exam Vital Signs: Last Vital Signs Pulse 123 H 01/08/25 09:10 BP 110/60 01/08/25 09:10 Pulse Ox 99 01/08/25 09:10 Oxygen Delivery Method Room Air 01/08/25 09:10 BMI result Body Mass Index 21.9 Const General: cooperative and no acute distress Orientation/consciousness: oriented to person Resp Effort & Inspection: normal respiratory effort and able to speak in complete sentences Neuro Other: Alert and oriented x3 Pleasant affect Very mild soft intermittent verbal tics today. No visible facial tics today No visible hand tremors. Mild hand fidgeting- using handheld device with good effect during the visit. Prichard of head has evidence of increased repetitive hair tugging/pulling. General: oriented to person Cranial nerves: Yes CN's II-XII intact bilaterally Cognition (Neuro): normal cognition Gait exam (Neuro): Normal gait present Results Reviewed Results Reviewed: Previous labs: 3 04/15/23 01/10/24 13:05 11:15 WBC 5.3 RBC 4.29 Hgb 13.3 Hct 39.8 MCV 92.8 Plt Count 211 ESR 18 Sodium 138 Potassium 4.3 Chloride 104 Carbon Dioxide 26 Anion Gap 12 BUN 12 Creatinine 1.14 Estimated GFR 60 Random Glucose 87 Hemoglobin A1c % 4.9 Calcium 10.2 Total Bilirubin 0.5 AST 72 H ALT 98 H Alkaline Phosphatase 88 Total Protein 7.6 Total Protein (PEP) 7.4 Albumin 4.5 Albumin (PEP) 4.4 Anti-Smooth Muscle Ab <20 Thyroglobulin Antibody <1 Thyroid Peroxidase Ab 2 Complement C3 147 Complement C4 26 Assessment & Plan Assessment & Plan (1) Tic disorder: Comment: Vocal and Motor tics. ? exacerbated by h/o significant trauma which coincided with COVID-19 pandemic in Spring 2019. Code(s): F95.9 - Tic disorder, unspecified Category: Medical (2) Mood disorder: Comment: depression, anxiety, fear, PTSD components. Code(s): F39 - Unspecified mood [affective] disorder Category: Medical (3) Tremor: Code(s): R25.1 - Tremor, unspecified Category: Medical (4) Migraine with aura: Code(s): G43.109 - Migraine with aura, not intractable, without status migrainosus Category: Medical Qualifiers: Status migrainosus presence: without status migrainosus Intractability: not intractable Qualified Code(s): G43.109 - Migraine with aura, not intractable, without status migrainosus (5) Anxiety: Code(s): F41.9 - Anxiety disorder, unspecified Category: Medical Plan Follow-up with rheumatology when able. For vitamin-D deficiency: Continue vitamin-D 25 mcg p.o. daily Check vitamin-D level at follow-up appointment For tics/PTSD/mood disorder: Acknowledged her active engagement in working w/ her therapist. Discussed adjusting her depression medication regimen, however patient is hesitant to make any changes at this time. Continue fluoxetine 60mg qam and 20mg qpm (pt wary to take a larger dose capsule). Continue Clonidine 0.2mg qhs. Continue psychotherapy. Continue to use strategies to manage tics/anxiety- such as using handheld tangible devices and coping strategies learned through therapy. Continue to engage in other coping strategies, such as leaning into her interest in plants and insects. She may benefit from trying home-based yoga exercises. ? For migraine with aura and neck pain: For prevention: * Information previously shared on noise reduction devices- such as loop ear plugs, foam era plugs. * Continue Riboflavin 400 mg daily in the morning * May use Magnesium [id number] mg chalo at bedtime as needed y. * Continue Gabapentin 200mg daily at bedtime * Continue Amitriptyline 10 mg daily at bedtime Tx contraindications- anti-HTN/Beta-blockers d/t lightheadedness. CGRP MaBs/Botox d/t needle phobia. Future considerations: Atogepant or Vyepti. For acute migraine tx: Advised that triptans will work best if taken at the 1st sign of a headache. * Discontinue Sumatriptan 100mg tab. * Trial Naratriptan 2.5mg tab, 1/2 - 1 tab (1.25-2.5mg) at onset of headache, may repeat in 4 hours. Max of 2 tabs (5mg) per 24 hours. * If needed, may take naratriptan with [id number] (OTC) Tylenol 650 - 1000 mg every 4 -6 hours, or Ibuprofen (liquigel) 600mg every 6 hours, or Naproxen (liquigel) 440mg every 12 hrs as needed. * Potential adverse effects of naratriptan, include but are not limited to nausea, fatigue, chest tightness/tingling (usually passes within a few minutes), medication overuse headaches. * Future considerations: G PAP For menstrual migraine: * Starting 2 days before menses, may take naratriptan 2.5 mg and Naproxen 440mg q 12 hrs (max 5 days). Pt to follow-up in 6 months or sooner prn. Medications: New 2 naratriptan take 1/2 - 1 tab at onset of headache; if no relief may repeat 1 tab after at least 4 hrs; max = 2 tabs/24 hrs orally PRN; 12 tabs 6RF migraine headache 30 days Changed 2 From gabapentin 100 - 300 mg (1 - 3 x 100 mg) PO BEDTIME 30 days 90 caps 6RF To gabapentin 200 mg (2 x 100 mg) PO BEDTIME 180 caps 3RF 90 days From amitriptyline 10 - 20 mg (1 - 2 x 10 mg) PO BEDTIME 30 days 60 tabs 3RF To amitriptyline 10 mg PO BEDTIME 90 tabs 1RF 90 days From fluoxetine 3 tabs qam and 1 tab qhs orally; 30 days 120 caps 6RF F39 - Unspecified mood [affective] disorder, F43.10 - Post-traumatic stress disorder, unspecified, F95.9 - Tic disorder, unspecified To fluoxetine 3 tabs qam and 1 tab qhs orally; 360 caps 3RF 90 days F39 - Unspecified mood [affective] disorder, F43.10 - Post-traumatic stress disorder, unspecified, F95.9 - Tic disorder, unspecified Refilled 2 magnesium oxide may hold for loose stools 400 mg PO BEDTIME 90 tabs 3RF 90 days riboflavin (vitamin B2) in am 400 mg (4 x 100 mg) PO DAILY 360 tabs 3RF 90 days clonidine HCl 0.2 mg PO BEDTIME 90 tabs 1RF 90 days Discontinued 2 sumatriptan succinate Discontinued Reason: Doctor's Order (0.5 - 1 x 100 mg) 50 - 100 mg orally at onset of headache, may repeat in 2 hrs PRN; max 2 tabs per day or 4 tabs/week (may take with Ibuprofen) 30 days 12 tabs 6RF migraine headache Coding Level of Care Code Est Pt Level 4 (50357) Diagnoses Tic disorder F95.9 Mood disorder F39 Tremor R25.1 Migraine with aura and without status migrainosus, not intractable G43.109 Status migrainosus presence: without status migrainosus Intractability: not intractable Anxiety F41.9
--- OUTSIDE RECORDS SUMMARY | 2025-01-08 10:17 | XMS_ITS | Clinical Summary ---
Author Organization [facility] [address] [place] [address] [place] [phone] Phone Care Team Providers Care Diesel Lube Tech Name Role Phone Owen Gonzalez MD Primary [...] Active Problems Problem Noted Date Diagnosed Date Hyperlipidemia 12/29/2024 LFT elevation 06/30/2024 TSH elevation 06/30/2024 Migraine [...] Encounters Date Type Department Care Team Description 12/29/2024 8:00 AM EDT Office Visit Adult Medicine [address] [phone] Noris Harrison PA Annual physical exam (Primary Dx); Tourette's syndrome; Tic disorder; PTSD (post-traumatic stress disorder); Other migraine without status migrainosus, not intractable; Vitamin D deficiency; TSH elevation; Mixed hyperlipidemia from Last 3 Months Immunizations Immunization Administration Dates Next Due Influenza trivalent, MDCK, 0 .5mL, preservative free (Flucelvax) 6mo and older 12/29/2024 Tdap Tetanus diptheria acell ular pertussis (Boostrix; [...] drink = 0.6 oz pur e alcohol) Housing Instability Answer Date Recorde d Are you worried that in the next 2 months you may not have stable housing? No 12/29/2024 Food Access & Nutrition Answer Date Rec orded Do you have access to a vari ety of food including fruits and vegetables? Yes 12/29/2024 Access to Healthcare Answer Date Record ed Within the last 3 months, ho w many times did you visit the emergency department for your medical care? 0 12/29/2024 Health Literacy Answer Date Recorded How often do you need to hav e someone help you when you read instructions, pamphlets, or other written material from your doctor or pharmacy? Often 12/29/2024 Caregiver: How often do you need to have someone help you when you read instructions, pamphlets, or other written material from your doctor or pharmacy? Not on file 12/29/2024 Financial Risk Answer Date Recorded How hard is it for you to pa y for the very basics like food, housing, medical care, and air conditioning / heating? Not very hard 12/29/2024 Transportation Answer Date Recorded Has the lack of transportati on kept you from meetings, work, or from getting things needed for daily living? No Has the lack of transportati on kept you from medical appointments or from getting medications? No 12/29/2024 Social Isolation Answer Date Recorded How often do you feel lonely or isolated from those around you? Sometimes 12/29/2024 Food Risk Answer Date Recorded Within the past 12 months we worried whether our food would run out before we got money to buy more. Never true 12/29/2024 Within the past 12 months th e food we bought just didn't last and we didn't have money to get more. Never true 12/29/2024 Dependent Care Answer Date Recorded Do you need help finding or paying for care for your loved ones. For example, school child care attendant or elderly care for an older adult? No 12/29/2024 Education Answer Date Recorded Do you think completing more education or training, like finishing a GED, going to college, or learning a trade, would be helpful for you? No 12/29/2024 Employment and Income Answer Date Recor ded During the last four weeks, have you been actively looking for work? No 12/29/2024 Living Situation Answer Date Recorded What is your living situation? Unrecognized valu e 12/29/2024 Comments Unknown Sex and Gender Information Value Date Recorded Sex Assigned at Not on file Legal Sex Female 7:07 AM EST Gender Identity Not on file Sexual Orientation Not on file Obstetrics History Last Filed Vital Signs Vital Sign Reading Time Taken Comments Blood Pressure 124/71 06/28/2024 9:50 AM EDT Pulse 95 06/28/2024 10:19 AM EDT Temperature 36 C (96.8 F) 12/29/2024 8:03 AM EDT Respiratory Rate 14 12/29/2024 8:03 AM EDT Oxygen Saturation 98% 06/28/2024 9:50 AM EDT Inhaled Oxygen Concentration - - Weight 70.8 kg (156 lb) 12/29/2024 8:03 AM EDT Height 152.4 cm (5') 12/29/2024 8:03 AM EDT Body Mass Index 30.47 12/29/2024 8:03 AM EDT Plan of Treatment Upcoming Encounters Date Type Department Care Team (Late st Contact Info) Description 01/02/2026 8:00 AM EDT Office Visit Adult Medicine [address] [phone] Owen Gonzalez MD [address] [place] [address] Health Maintenance Due Date Last Done Comments Meningococcal B Vaccine (1 of 2 - Standard) 2017 Cervical Cancer Screening: Pap Smear 2022 HIV Screening 10/12/2023 COVID-19 Vaccine ( season) 2024 09/10/2020, 08/20/2020 Social Influencers of Health Screening 12/29/2025 12/29/2024 Cholesterol Screening (Lipid Panel) 06/28/2029 06/28/2024 DTaP,Tdap,and Td Vaccines (8 - Td or Tdap) 06/28/2034 06/28/2024, 06/27/2013, 06/08/2005, Additional history exists RSV Immunization Adult Patients (1 - 1-dose 75+ series) 2076 Hepatitis B Vaccines Completed 06/01/2002, 03/20/2002, 2001, Additional history exists HIB Vaccines Completed 09/04/2002, 11/21, 2001, Additional history exists Pneumococcal Vaccine: Pediatrics (0 to 5 Years) and At-Risk Patients (6 to 49 Years) Completed 09/04/2002, 2001, 2001, Additional history exists IPV Vaccines Completed 06/08/2005, 11/20, 2001, Additional history exists MMR Vaccines Completed 06/01/2006, 09/04/2002 Varicella Vaccines Completed 06/01/2006, 06/19/2002 HPV Vaccines Completed 11/06/2015, 08/20, 06/27/2013 Hepatitis A Vaccines Completed 05/12/2016, 11/06/19 Meningococcal ACWY Vaccine Completed 06/09/2017, Hepatitis C Screening Completed 06/28/2024 Depression Screening Completed 12/29/2024 Influenza Vaccine Completed 12/29/2024, , 12/27/2008, Additional history exists Gonorrhea/Chlamydia Screening Discontinued RSV Immunization Patients Under 20 months Aged Out No longer eligible based on patient's age to complete this topic Procedures Procedure Name Priority Date/Time Associated Diagnosis Comments HEPATITIS C ANTIBODY Routine 06/28/2024 9:00 AM EDT Immunity status testing LIPID PANEL WITH REFLEX TO DIRECT LDL Routine 06/28/2024 9:00 AM EDT Annual physical exam from Last 3 Months or Most Recently Relevant to Health Maintenance Results * Hepatitis C antibody (06/28/2024 9:00 AM EDT) Hepatitis C Antibody Negative Negative LAB CHEMISTRY METHOD 06/28/2024 5:35 PM EDT [facility] Blood Venous blood specimen / Unknown Venipuncture / Unknown 06/28/2024 9:00 AM EDT 06/28/2024 9:00 AM EDT Owen Gonzalez MD LAB BLOOD ORDERA BLES Final Result [facility] [address] [place] [address], [place] [phone] * (ABNORMAL) Lipid panel with reflex to direct LDL (06/28/2024 9:00 AM EDT) Cholesterol 238(H) 0 - 200 mg/dL LAB CHEMISTRY METHOD 06/28/2024 3:46 PM EDT [facility] Triglycerides 106 0 - 150 mg/dL LAB CHEMISTRY METHOD 06/28/2024 3:46 PM EDT [facility] HDL 81 >=40 mg/dL LAB CHEMISTRY METHOD 06/28/2024 3:46 PM EDT [facility] LDL Calculated 136(H) 0 - 100 mg/dL LAB CHEMISTRY METHOD 06/28/2024 3:46 PM EDT [facility] VLDL Cholesterol Lei 21.2 mg/dL LAB CHEMISTRY METHOD 06/28/2024 3:46 PM EDT [facility] Non HDL Chol. (LDL+VLDL) 157(H) <145 mg/dL LAB CHEMISTRY METHOD 06/28/2024 3:46 PM EDT [facility] Chol/HDL Ratio 2.9 0.0 - 4.4 LAB CHEMISTRY METHOD 06/28/2024 3:46 PM EDT [facility] Blood Venous blood specimen / Unknown Venipuncture / Unknown 06/28/2024 9:00 AM EDT 06/28/2024 9:00 AM EDT us Noris BURKS LAB BLOOD ORDERABLES Final Re sult [facility] [address] [place] [address], [place] [phone] from Last 3 Months or Most Recently Relevant to Health Maintenance [place] [address] [place] [address] PLAN Care Teams Diesel Lube Tech Relationship Specialty Start Date End Date Owen Gonzalez MD [address] [place] [address] PCP - General 07/05/23
--- OUTSIDE RECORDS SUMMARY | 2025-01-08 10:17 | XMS_ITS ---
Author Organization [address] Address [address] [place] [phone] Phone Care Team Providers Care Chenille Machine Operator Name Role Phone Owen Gonzalez MD Primary Care Pr ovider Financial Auditor Care Management Status:Identified (Enrolling) Start date:01/01/2025 Enrollment reason:Identified using claims or encounter data Related social drivers of health:TH Health Literacy, Social Isolation Overview AWV depression screening Case Team Name Relationship Phone Radha MILLS(Responsible Staff) Care Man ager [phone] Continued Care and Services Coordination
== END 2025-01-08 10:21 | disposition home or self-care (01) ==
LOC: HO.HSMS 09:02
PROVIDERS: Visit Provider Nurse Practitioner Family
DX: F95.9 Tic disorder, unspecified (principal); F39 Unspecified mood [affective] disorder; G43.109 Migraine with aura, not intractable, without status migrainosus; F41.9 Anxiety disorder, unspecified
CPT/HCPCS: 99214

== ENCOUNTER → 2025-01-08 09:01 | Outpatient (BNVA) | payer OTHER, SELFPAY | PROVIDERS: Visit Provider Nurse Practitioner Family | DX: G43.109 Migraine with aura, not intractable, without status migrainosus (principal); F39 Unspecified mood [affective] disorder; F95.9 Tic disorder, unspecified; F41.9 Anxiety disorder, unspecified; F43.10 Post-traumatic stress disorder, unspecified; E55.9 Vitamin D deficiency, unspecified; M54.2 Cervicalgia | CPT/HCPCS: 99212 ==